=== PATIENT | female | born 1985 | race Caucasian/White ===

== ENCOUNTER → 2016-11-04 | Outpatient (CLI) | payer OTHER ==
[~2016-11-04] MED LIST: ALBUAER2 INH; B-COCAP2 PO; CALC-214 PO; FOLI1TAB7 PO; OMEGCAP2 PO; PRENTAB26 PO; RANITAB33 PO
== END | disposition home or self-care (01) ==
LOC: C.LABSPEC 17:06
PROVIDERS: ATTEND Family Medicine
DX: R73.01 Impaired fasting glucose (principal)

== ENCOUNTER → 2017-02-20 | Outpatient (CLI) | payer OTHER | END | disposition home or self-care (01) | LOC: C.PATHSPEC 13:29 | PROVIDERS: ATTEND Plastic Surgery | DX: L72.9 Follicular cyst of the skin and subcutaneous tissue, unspecified (principal) ==

== ENCOUNTER → 2017-04-01 | Outpatient (CLI) | payer OTHER | END | disposition home or self-care (01) | LOC: C.PAPS 07:53 | PROVIDERS: ATTEND Physician Assistant | DX: Z12.4 Encounter for screening for malignant neoplasm of cervix (principal) ==

== ENCOUNTER → 2017-10-20 | Outpatient (CLI) | payer OTHER ==
[~2017-10-20] MED LIST changes: -FOLI1TAB7 PO; +FOLI1TAB8 PO
== END | disposition home or self-care (01) ==
LOC: C.LAB 08:18
PROVIDERS: ATTEND Nutritionist
DX: R53.83 Other fatigue (principal)

== ENCOUNTER 2021-10-25 08:57 | Inpatient (IN) ==
[2021-10-25] MEDS ORDERED: OXYTOCIN 30 UNITS/500 ML BAG IV PRN ×2 (09:13→11:08)
[2021-10-25] MEDS ORDERED: PENICILLIN G POTASSIUM 6 MU in DEXTROSE 5% 250 ML IV STA (09:13)
[2021-10-25] MEDS ORDERED: LACTATED RINGER'S 1,000 ML IV PRN (09:13)
[2021-10-25 09:27] LABS: Hematocrit (blood only) 33.9 % (37-47); Hemoglobin 10.8 g/dL (12.0-16.0); Mean Corpuscular Hemoglobin 26.8 pg (25-34); Mean Corpuscular Hgb Conc 31.9 g/dL (32-36); Mean Corpuscular Volume 84.1 fL (80-100); Mean Platelet Volume 9.9 fL (7.4-10.4); Platelet Count 184 K/uL (130-400); RDW Standard Deviation 43.3 fL (36.4-46.3); Red Blood Count 4.03 M/uL (4.2-5.4); White Blood Count 7.71 K/uL (4.8-10.8)
--- NOTE | 2021-10-25 09:33 | History & Physical Report ---
Date of Service October 25, 2021 Assessment & Plan (1) PROM (premature rupture of membranes): Plan: Confirmed rupture of membranes nitrazine and AmniSure her cervix is posterior closed 50% her contractions are starting to increase penicillin be started discussed Pitocin if contractions do not increase substantially in the next 2 hours History of Present Illness Primary Care Provider: Jonatan Melo, DO Current Estimate 10/31/21 LMP (Certain) 38w 6d Other Estimates 10/31/21 Ultrasound #1 38w 6d LMP: 01/24/21 : 2 Full term: 1 Premature: 0 Total Number of Induced Abortions: 0 Total Number of Spontaneous Abortions: 0 Ectopics: 0 Multiple births: 0 Number of Living Children: 1 and Delivery Plans Hypothyroidism in *TFT's Q 4wks. GBS + urine *treat in labor *allergy tested, no allergy to PCN or Cephalosporins AMA NSTs at 36 wk Flu shot given 07/12/21 SB Need for Rhogam due to RH negative Mother *Rhogam given 03/08/21- in ED given 08/09/21 OC Allergies Allergy/AdvReac Type Severity Reaction Status Date / Time cefaclor Allergy Severe Gastrointestinal Verified 10/23/21 10:27 Upset Sulfa (Sulfonamide Allergy Severe RASH Verified 10/23/21 10:27 Antibiotics) egg Allergy Mild GI SYMPTOMS Verified 10/23/21 10:27 latex Allergy Mild RASH Verified 10/23/21 10:27 nut - unspecified Allergy Mild GI SYMPTOMS Verified 10/23/21 10:27 soy Allergy Mild GI SYMPTOMS Verified 10/23/21 10:27 gluten Allergy Unknown Unknown Verified 10/23/21 10:27 red dye Allergy Unknown Unknown Verified 10/23/21 10:27 adhesive tape Allergy Unknown Verified 10/23/21 10:27 codeine Allergy unknown Verified 10/23/21 10:27 azithromycin AdvReac Severe Gastrointestinal Verified 10/23/21 10:27 Upset sulfamethoxazole AdvReac Severe Gastrointestinal Verified 10/23/21 10:27 [From Bactrim] Upset trimethoprim [From Bactrim] AdvReac Severe Gastrointestinal Verified 10/23/21 10:27 Upset Home Medications Medication Instructions Recorded Confirmed Type multivitamin with minerals 1 tab PO DAILY 03/09/21 10/23/21 History (Multiple Vitamin-Minerals) Ca carb-Ca gluc-Mg ox-Mg gluco PO 03/19/21 10/23/21 History [Calcium Magnesium] biotin PO 03/19/21 10/23/21 History vitamin B complex PO 03/19/21 10/23/21 History cholecalciferol (vitamin D3) PO 09/06/21 10/23/21 History Patient History Medical History (Updated 10/25/21 @ 09:32 by Gunnar Rivera MD, FACOG) Carrier of group B Streptococcus History of hyperparathyroidism Hyperthyroidism Varicella Surgical History History of parathyroid surgery Hx of tonsillectomy Family History (Updated 03/19/21 @ 13:13 by Risa Mckenna) Grandfather (Paternal) Colorectal cancer Dementia Grandmother (Maternal) Factor V Leiden Mother Breast cancer, Onset Age: 56 Dx Fall 2017 with DCIS Aunt Breast cancer, Onset Age: 60 Grandfather (Maternal) Heart disease Other Dyslipidemia Hypertension Social History (Updated 03/19/21 @ 13:14 by Risa Mckenna) Smoking Status: Never smoker Hx Alcohol Use: No Hx Substance Use: No Preferred Language: Korean Club Attendant Required: No Beliefs That Will Affect Care: None marital status: marital status details: [facility] [phone]) [phone] Current Living Situation: Spouse Current Living Situation Comment: lvies with spouse, and daughter, no pets. current occupational status: unemployed Feels Safe at Home: Yes Sunscreen Use: Yes Results & Data ([facility]) Vital Signs (Past 12 Hours) Vital Signs Pulse BP 10/25/21 09:22 68 128/77 Coding Level of Care Code None Diagnoses PROM (premature rupture of membranes) O42.90
[2021-10-25] MEDS ORDERED: PENICILLIN G POTASSIUM 3 MU in DEXTROSE 5% 100 ML IV PRN (12:13)
--- NOTE | 2021-10-25 15:29 | Labor Progress Brief Note ---
Date of Service October 25, 2021 Patient on Pitocin having repetitive decelerations with every contraction cervix to 50% closed -2 of note the patient has had decreased movement movement for the last month of her we discussed potential causes of recurrent decelerations with every contraction including cord compression or placental dysfunction At this stage we will stop the Pitocin and reassess after some rest we discussed the possibility of at this process if this persists Assessment & Plan Admission and Anticipated Discharge Date Admission Date: October 25, 2021 Results & Data ([facility]) Vital Signs (Past 12 Hours) Vital Signs Temp Pulse Resp BP 10/25/21 13:45 57 L 117/62 10/25/21 13:12 98.1 F 10/25/21 10:28 98.1 F 22 10/25/21 09:22 98.1 F 68 20 128/77 Coding Level of Care Code None
--- NOTE | 2021-10-25 15:56 | Labor Progress Brief Note ---
Date of Service October 25, 2021 Subjective Review of Systems heart rate now shows no variability after Pitocin has been off she had a prolonged D-cell as well the cervix is still closed 50% I discussed 2 options 1 was to restart Pitocin after 30 minutes I also discussed the option of section as this fetus is not tolerating very well even minimal contractions I discussed the risks and benefits of both and she wishes to proceed with I think this is the reason we will call section. The patient was counseled to the nature of the procedure including alternatives such as labor. Risks were discussed including bleeding infection injury to bowel bladder ureter vessels and even baby. Deep Vein thrombosis, pulmonary embolus discussed. Breakdown of incision reviewed. Deep vein thrombosis pulmonary embolus hernia and failure of the incision to heal were discussed Patient verbalized understanding of this and was given ample time to ask questions Assessment & Plan Admission and Anticipated Discharge Date Admission Date: October 25, 2021 Results & Data ([facility]) Vital Signs (Past 12 Hours) Vital Signs Temp Pulse Resp BP Pulse Ox 10/25/21 15:48 83 100 10/25/21 15:43 97 H 100 10/25/21 15:38 81 100 10/25/21 15:33 107 H 100 10/25/21 13:45 57 L 117/62 10/25/21 13:12 98.1 F 10/25/21 10:28 98.1 F 22 10/25/21 09:22 98.1 F 68 20 128/77 Coding Level of Care Code None
[2021-10-25] MEDS ORDERED: CITRIC ACID/SODIUM CITRATE 15 ML UDC PO SCH (16:00)
[2021-10-25] MEDS ORDERED: ceFAZolin 2000MG 2,000 MG/15 ML SYR IV SCH (16:00)
--- NOTE | 2021-10-25 16:13 | Anesthesiology Consultation ---
Date of Service October 25, 2021 Assessment & Plan (1) Encounter for pre-operative examination: Chart Review Chart Review: Acceptable Risk for Surgery and Patient NOT seen in Pre Admission Testing Consults Requested none ASA ASA2 Proposed Anesthesia Anesthesia Type: MAC Spinal Risk / Benefits Reviewed With: PT / POA / Parent / Guardian, Accepts Plan and Informed Consent Obtained History Surgery Operation Date: 10/25/21 16:00 Proposed Procedures p Section in LD - J. Marcio Rivera MD, FACOG Height/Weight Height: 5 ft 8 in Weight: 77.657 kg Allergies Allergy/AdvReac Type Severity Reaction Status Date / Time cefaclor Allergy Severe Gastrointestinal Verified 10/23/21 10:27 Upset Sulfa (Sulfonamide Allergy Severe RASH Verified 10/23/21 10:27 Antibiotics) egg Allergy Mild GI SYMPTOMS Verified 10/23/21 10:27 latex Allergy Mild RASH Verified 10/23/21 10:27 nut - unspecified Allergy Mild GI SYMPTOMS Verified 10/23/21 10:27 soy Allergy Mild GI SYMPTOMS Verified 10/23/21 10:27 gluten Allergy Unknown Unknown Verified 10/23/21 10:27 red dye Allergy Unknown Unknown Verified 10/23/21 10:27 adhesive tape Allergy Unknown Verified 10/23/21 10:27 codeine Allergy unknown Verified 10/23/21 10:27 azithromycin AdvReac Severe Gastrointestinal Verified 10/23/21 10:27 Upset sulfamethoxazole AdvReac Severe Gastrointestinal Verified 10/23/21 10:27 [From Bactrim] Upset trimethoprim [From Bactrim] AdvReac Severe Gastrointestinal Verified 10/23/21 10:27 Upset Medications Home Medications Medication Instructions Recorded Confirmed Last Taken multivitamin with minerals 1 tab PO DAILY 03/09/21 10/23/21 Unknown (Multiple Vitamin-Minerals) Ca carb-Ca gluc-Mg ox-Mg gluco PO 03/19/21 10/23/21 Unknown [Calcium Magnesium] biotin PO 03/19/21 10/23/21 Unknown vitamin B complex PO 03/19/21 10/23/21 Unknown cholecalciferol (vitamin D3) PO 09/06/21 10/23/21 Unknown biotin 1 mg capsule 1 mg PO DAILY 10/25/21 10/25/21 10/25/21 07:00 calcium carb-Ca gluc 500 mg tab PO 10/25/21 10/25/21 07:00 calcium-magnesium ox-Mg gluc 250 mg tablet (Calcium Magnesium) Active Medications Generic Name Dose Route Start Last Admin Trade Name Freq PRN Reason Stop Dose Admin Lactated Ringer's 1,000 mls @ 125 mls/hr 10/25/21 09:13 10/25/21 15:51 Lr IV 10/27/21 09:12 125 mls/hr .Q8H PRN Infusion L&D Protocol Protocol Penicillin G Potassium 3 mu/ 106 mls @ 100 mls/hr 10/25/21 12:13 10/25/21 14:49 Dextrose IV 11/04/21 12:12 100 mls/hr Q4H PRN Administration GBS(+) Until Delivery Oxytocin 30 units in 500 mls @ 0 mls/hr 10/25/21 11:08 10/25/21 15:24 Pitocin IV 10/27/21 11:07 0 units/hr .Q0M PRN 0 mls/hr Labor Induction/Augmentation Titration Protocol 0 UNITS/HR NPO Date Last Intake of Fluids: 10/25/21 Time Last Intake of Fluids: 15:00 Date Last Intake of Solids: 10/25/21 Time Last Intake of Solids: 07:30 Past Medical History Medical History Carrier of group B Streptococcus History of hyperparathyroidism Hyperthyroidism Varicella Exercise / Class Metabolic Activity II 4-5 Yardwork/Stairs/Walk up hill Past Family History Family History Grandfather (Paternal) Colorectal cancer Dementia Grandmother (Maternal) Factor V Leiden Mother Breast cancer, Onset Age: 56 Dx Fall 2017 with DCIS Aunt Breast cancer, Onset Age: 60 Grandfather (Maternal) Heart disease Other Dyslipidemia Hypertension Past Surgical History Surgical History History of parathyroid surgery Hx of tonsillectomy Past Anesthesia History No Hx of Anesthesia Complications and No Family Hx of Anesthesia Complications History of PONV No Hx of PONV and No Hx of Motion Sickness Social History Smoking Status: Never smoker Hx Alcohol Use: No Hx Substance Use: No substance use type: does not use Review of Systems no chest pain or sob Physical Exam Vital Signs Last Vital Signs Temp 36.7 C 10/25/21 13:12 Pulse 86 10/25/21 16:08 Resp 22 10/25/21 10:28 BP 117/62 10/25/21 13:45 Pulse Ox 100 10/25/21 16:08 ENMT Mouth: no TMJ abnormality Thyromental Distance: > or= 3.5 Finger Breadths Mallampati Class: II Neck normal visual inspection Respiratory normal respiratory effort Auscultation: lungs clear to auscultation bilaterally Cardiovascular Rate/Rhythm: regular rate and regular rhythm Musculoskeletal Spine: normal cervical ROM Neurologic moves all extremities Psychiatric Orientation: alert and oriented x 3 Testing Laboratory Results 10/25/21 09:18
[2021-10-25] MEDS ORDERED: MoRPHine SULFATE PF 1 MG/ML 10 ML AMP/VIAL ONE (16:28)
[2021-10-25] MEDS ORDERED: fentaNYL citrate 100 MCG/2 ML VIAL ONE (16:28)
[2021-10-25] MEDS ORDERED: OXYTOCIN 10 UNITS/ML 10ML VIAL ONE ×3 (16:38→17:00)
[2021-10-25] MEDS ORDERED: PHENYLEPHRINE 100MCG/ML 5ML SYR ONE (16:49)
[2021-10-25] MEDS ORDERED: ONDANSETRON INJ 2 MG/ML 2 ML VIAL ONE (17:00)
--- NOTE | 2021-10-25 17:29 | Operative Report ---
PG Post Operative Report Pre & Post Diagnosis Operation Date: 10/25/21 16:00 <No data on this case meets the specified criteria> I identified the patient and participated in the time-out.: Yes Procedure Operation Date: 10/25/21 16:00 <No data on this case meets the specified criteria> Surgeon Gunnar Rivera MD, FACOG Hospitality Ambassador resident Estimated Blood Loss 800 Findings Consistent with Post-Op Diagnosis Specimens Cord gases Cord blood placenta Description of Procedure Regional anesthetic had been given by anesthesia patient was prepped and draped with a leftward tilt preoperative antibiotics had been given in appropriate timing by anesthesiology. Once the prep was allowed to fully dry timeout was performed. Pickups with teeth were used to test the incision area was found to be adequate for incision as the patient did not feel sharp pain. Scalpel was used to make a Pfannenstiel incision on the lower abdomen. We then cut through the subcutaneous fat down to the level of the anterior rectus sheath fascia this was cut in the midline and then extended laterally with the curved Hamlin scissors. At this stage we then placed 2 Bernice clamps on the anterior aspect of the fascia. Using the curved Hamlin's we are able to dissect the fascia superiorly away from the rectus muscles. Care was taken to maintain hemostasis. Bernice clamps were then placed to the inferior aspect of the anterior sheath of the fascia. Fascia was then dissected away from the rectus muscles inferiorly towards the pubic bone. A Bernice was then placed in the midline both inferiorly and superiorly. This was to allow exposure by retraction rectus muscles were in the midline with were then able to cut through the peritoneum and then enter the peritoneal cavity. Opening was enlarged to allow exposure of the peritoneal cavity both superiorly and inferiorly. Once adequate space was obtained a bladder retractor was placed to expose the lower segment Metzenbaums were used to dissect the bladder flap inferiorly away from the uterus. This was done sharply bladder retractor was then repositioned to expose the lower segment of the uterus Fresh scalpel was used to make a low transverse incision on the uterus. Uterus was then entered bluntly with the operators finger, membranes ruptured and the opening was enlarged using the operators fingers bluntly pulling superiorly and inferiorly to allow exposure. Baby was delivered by first flexion of the head elevation of the head out of the pelvis and then pressure by the assistant analyst on the maternal abdomen. Baby's head was then delivered mouth and then nares were suctioned and then using gentle traction the baby was fully delivered. Live vigorous infant. Fluid was clear cord clamped and cut cord gases obtained cord blood obtained baby handed to pediatrics. Placenta removed was removed with traction we ensure the entire placenta was removed with a moist lap sponge into the uterus. Should be noted that on entry of the uterus there was a large clot approximately 300 cc of blood in the uterus technical service representative in my opinion of an abruption. All clot was removed and we ensured all placenta was removed uterine tone improved and there was no excessive bleeding. I do not feel the uterus meet the criteria of [place] however it was somewhat dark issue consistent with the abruption. Uterus was then exteriorized. IV Pitocin had been started by anesthesia tone improved there were no extensions the uterus was then closed using 0 Monocryl in a 2 layer closure the first layer closed in a running locked fashion from left to right and then a second closure from left to right in a running nonlocked fashion. At this stage hemostasis was excellent. Uterus was placed back in the peritoneal cavity with suction irrigation out and inspection of the uterus at this stage revealed excellent hemostasis Retractors were removed urine color was clear at this stage of the case we inspected the rectus muscles they were hemostatic fascia was closed with 0 Vicryl subcutaneous fat was irrigated and closed with 3-0 Vicryl skin closed with 4-0 subcuticular Monocryl I attest to the content of the Intraoperative Record and any orders documented therein. Any exceptions are noted below. OB Procedure Charges [id number]
[2021-10-25] MEDS ORDERED: BENZOCAINE 20% AER SPR 82.5 GM CAN EXT PRN (17:48)
[2021-10-25] MEDS ORDERED: ONDANSETRON INJ 2 MG/ML 2 ML VIAL IV PRN ×2 (17:48→19:20)
[2021-10-25] MEDS ORDERED: PROMETHAZINE HCL 25 MG in SODIUM CHLORIDE 0.9% 50 ML IV PRN (17:48)
[2021-10-25] MEDS ORDERED: oxyCODONE/ACETAMINOPHEN 5mg/325mg TAB PO PRN (17:48)
[2021-10-25] MEDS ORDERED: diphenhydrAMINE Capsule 25 MG CAP PO PRN (17:48)
[2021-10-25] MEDS ORDERED: MAGNESIUM HYDROXIDE SUSP 30 ML UDC PO PRN (17:48)
[2021-10-25] MEDS ORDERED: LACTATED RINGER'S 1,000 ML IV SCH (17:48)
[2021-10-25] MEDS ORDERED: ACETAMINOPHEN 325 MG TAB PO PRN (17:48)
[2021-10-25] MEDS ORDERED: diphenhydrAMINE 50 MG/ML VIAL IV PRN ×2 (17:48→19:20)
[2021-10-25] MEDS ORDERED: HYDROCORTISONE ACETATE 25 MG SUPP PR PRN (17:48)
[2021-10-25] MEDS ORDERED: SENNA 8.6 MG TAB PO PRN (17:48)
[2021-10-25 18:02] LABS: Base Excess Cord Arterial Bld -1.9 mEq/L (-9-1.8); CO2 Cord Arterial Blood 58 mmHg (39.1-73.5); HCO3 Cord Arterial Blood 26 mmol/L (19.7-28.5); Oxygen Sat Cord Arterial Blood < 60.0 % (<60); PO2 Cord Arterial Blood 14 mmHg (4.1-31.7); pH Cord Arterial Blood 7.27 (7.1-7.38)
[2021-10-25 18:03] LABS: Base Excess Cord Venous Blood -2.1 mEq/L (-7.7-1.9); Cord Venous Blood HCO3 24 mmol/L (18.4-26.8); Cord Venous Blood PCO2 48 mmHg (30.4-57.2); Cord Venous Blood PO2 19 mmHg (14.1-43.3); Cord Venous Blood pH 7.32 (7.20-7.44); O2 Saturation Cord Venous Bld < 60.0 % (<68)
--- NOTE | 2021-10-25 18:52 | Anesthesiology Progress Note ---
Date of Service October 25, 2021 Anesthesia Post Procedure Vital Signs Vital Signs: Temp Pulse Resp BP Pulse Ox 10/25/21 18:50 61 98 10/25/21 18:46 70 135/75 10/25/21 18:45 72 98 10/25/21 18:40 65 97 10/25/21 18:36 62 114/61 10/25/21 18:35 63 97 10/25/21 18:30 67 97 10/25/21 18:25 66 97 10/25/21 18:20 68 98 10/25/21 18:15 72 106/63 98 10/25/21 18:10 62 100 10/25/21 18:05 60 110/61 100 10/25/21 18:00 62 100 10/25/21 17:56 75 112/60 10/25/21 17:55 69 100 10/25/21 17:50 72 100 10/25/21 17:45 36.7 C 68 16 110/58 L 100 10/25/21 17:40 74 100 10/25/21 17:36 74 106/53 L 10/25/21 17:35 71 100 10/25/21 16:23 79 100 10/25/21 16:18 66 100 10/25/21 16:13 78 100 10/25/21 16:08 86 100 10/25/21 16:03 81 100 10/25/21 15:58 79 100 10/25/21 15:53 81 100 10/25/21 15:48 83 100 10/25/21 15:43 97 H 100 10/25/21 15:38 81 100 10/25/21 15:33 107 H 100 10/25/21 13:45 57 L 117/62 10/25/21 13:12 36.7 C 10/25/21 10:28 36.7 C 22 10/25/21 09:22 36.7 C 68 20 128/77 Transfer of Care Handoff Completed per policy Notes Mental Status: alert / awake / arousable Patient Amnestic to Procedure: Yes Nausea / Vomiting: adequately controlled Pain: adequately controlled Airway Patency, RR, SpO2: stable & adequate BP & HR: stable & adequate Hydration State: stable & adequate Neuraxial Anesthesia: was administered and sensory block is resolving Anesthetic Complications: no major complications apparent and Pt Satisfied with anesthetic care
[2021-10-25] MEDS ORDERED: LACTATED RINGER'S 500 ML IV PRN (19:20)
[2021-10-25] MEDS ORDERED: NALOXONE HCL 0.4 MG/1 ML VIAL/CARP IV PRN (19:20)
[2021-10-25] MEDS ORDERED: ePHEDrine sulfate 50 MG/ML AMP IV PRN (19:20)
[2021-10-25] MEDS ORDERED: MoRPHine SULFATE PF 1 MG/ML 10 ML AMP/VIAL INT SPINAL ONE (19:20)
[2021-10-25] MEDS ORDERED: NALOXONE HCL 1 MG in SODIUM CHLORIDE 0.9% 1000ML 1,000 ML IV PRN (19:20)
[2021-10-25] MEDS ORDERED: HYDROmorphone INJ 0.5 MG/0.5 ML SYR IV PRN (19:20)
[2021-10-25] MEDS ORDERED: NALOXONE HCL 0.08 MG in SYRINGE 1.8 ML IV PRN (19:20)
[2021-10-25] MEDS ORDERED: NALBUPHINE HCL INJ 10 MG/ML AMP IV PRN (19:20)
[2021-10-25] MEDS ORDERED: SODIUM CHLORIDE 0.9% 1000ML 1,000 ML IV SCH (19:30)
[2021-10-25] MEDS ORDERED: DC INTRASPINAL MORPHINE SCH (19:30)
[2021-10-25] MEDS ORDERED: NO NARCOTICS OR SEDATIVES SCH (19:30)
[2021-10-25] MEDS: KETOROLAC 30 MG/ML VIAL IV PRN (19:43)
[2021-10-25] MEDS: OXYTOCIN 20 UNITS in LACTATED RINGER'S 1,000 ML IV SCH (19:45)
[2021-10-26] MEDS: SIMETHICONE 80 MG CHEW PO SCH ×5 (01:14→23:33)
[2021-10-26] MEDS: DOCUSATE SODIUM 100 MG CAP PO SCH ×3 (01:14→23:33)
[2021-10-26] MEDS: KETOROLAC 30 MG/ML VIAL IV PRN ×2 (01:58→08:32)
[2021-10-26] MEDS: OXYTOCIN 20 UNITS in LACTATED RINGER'S 1,000 ML IV SCH (03:25)
[2021-10-26 06:39] LABS: Hematocrit (blood only) 23.2 % (37-47); Hemoglobin 7.5 g/dL (12.0-16.0); Mean Corpuscular Hemoglobin 26.8 pg (25-34); Mean Corpuscular Hgb Conc 32.3 g/dL (32-36); Mean Corpuscular Volume 82.9 fL (80-100); Mean Platelet Volume 9.9 fL (7.4-10.4); Platelet Count 125 K/uL (130-400); RDW Coefficient of Variation 14.2 % (11.5-14.5); RDW Standard Deviation 43.1 fL (36.4-46.3); White Blood Count 8.05 K/uL (4.8-10.8)
[2021-10-26] MEDS ORDERED: LACTATED RINGER'S 500 ML IV ONE (06:45)
[2021-10-26 07:01] LABS: Basophils # (auto) 0.01 K/uL (0-0.2); Basophils % (auto) 0.1 %; Eosinophils # (auto) 0.02 K/uL (0-0.5); Eosinophils % (auto) 0.2 %; Immature Granulocytes # (auto) 0.04 K/uL (0.00-0.02); Immature Granulocytes % (auto) 0.5 %; Lymphocytes # (auto) 1.25 K/uL (1.2-3.4); Lymphocytes % (auto) 15.5 %; Monocytes # (auto) 0.81 K/uL (0.11-0.59); Monocytes % (auto) 10.1 %; Neutrophils # (auto) 5.92 K/uL (1.4-6.5); Neutrophils % (auto) 73.6 %; Polychromasia 1+
--- NOTE | 2021-10-26 07:43 | Obstetrical Progress Note ---
Date of Service <Loida Lu DO - Last Filed: 10/26/21 07:43> October 26, 2021 Assessment & Plan <Loida Lu DO - Last Filed: 10/26/21 07:43> (1) Encounter for care and examination after delivery: 36 yo post op day1 from c/s as elderly multigravida, complicated by placental abruption, hypothyroidism, doing well. -Continue routine post care. -vital signs reviewed and WNL (Tmax 36.8) -Blood Type O- received rhogam in office, GBS+, Rubella immune -Encourage ambulation, monitor and control pain with Motrin, tylenol PRN, resume regular diet, monitor lochia -encourage breast feeding -hemoglobin 7.5 Day #:: 1 <Gunnar Rivera MD, FACOG - Last Filed: 10/26/21 07:53> (1) Encounter for care and examination after delivery: Subjective <Loida Lu DO - Last Filed: 10/26/21 07:43> Ambulation: limited ambulation Voiding: liang catheter in place Passing Gas:: No Diet Tolerance:: regular diet Lochia:: Moderate Feeding Type:: breast feeding Current Pain Level(1-10): 2 Review of Systems Denies fever, chills, sweats Denies shortness of breath, difficulty breathing, chest pain, palpitations, chest pressure. Denies breast pain. Denies dysuria. Denies headache or changes in vision. Physical Exam <Loida Lu DO - Last Filed: 10/26/21 07:43> General: Alert, oriented. No acute distress. Cardiac: Regular rate and rhythm, no murmurs/rubs/gallops. Respiratory: Clear to auscultation bilaterally a/p, no wheezes/rales/rhonchi. No increased work of breathing. Symmetrical chest rise. No respiratory distress. Abdomen: Soft, nontender, nondistended. Bowel sounds present. Uterus: Uterine fundus firm, palpable 2 cm below umbilicus. Surgical scar clean and healing well. Lower Extremities: No lower extremity edema or swelling. No deep calf pain. Ramana's negative bilaterally. Results & Data ([facility]) <Loida Lu DO - Last Filed: 10/26/21 07:43> Vital Signs (Past 12 Hours) Vital Signs Temp Pulse Resp BP Pulse Ox 10/26/21 06:35 20 98 10/26/21 05:30 20 98 10/26/21 04:30 20 98 10/26/21 03:30 36.8 C 73 20 117/69 98 10/26/21 02:30 20 98 10/26/21 00:30 20 97 10/25/21 23:40 36.7 C 65 20 114/65 97 10/25/21 22:15 16 99 10/25/21 21:15 16 100 10/25/21 20:10 36.6 C 59 L 16 122/70 99 <Gunnar Rivera MD, FACOG - Last Filed: 10/26/21 07:53> Co-Signing Physician Notes Resident Physician Supervision Note: I interviewed and examined the patient. Discussed with [Name of resident] and agree with findings and plan as documented in the note. Any exceptions or clarifications are listed here: [None] Documented By: Gunnar Rivera MD, FACOG Resident Activity Tracking <Loida Lu DO - Last Filed: 10/26/21 07:43> Resident Involvement: Resident Care Provided Care Provided: Adult Hospital Medicine and OB Delivery
[2021-10-26] MEDS ORDERED: DIPHTHERIA/TETANUS/PERTUSSIS 0.5 ML SYR/VIAL IM ONE (08:00)
[2021-10-26] MEDS: FERROUS SULFATE 325 MG TAB PO SCH (08:31)
[2021-10-26] MEDS: PRENATAL VITAMIN 1 TAB PO SCH (09:14)
[2021-10-26] MEDS ORDERED: diphenhydrAMINE Capsule 25 MG CAP PO PRN (13:20)
[2021-10-26] MEDS ORDERED: oxyCODONE/ACETAMINOPHEN 5mg/325mg TAB PO PRN (13:20)
[2021-10-26] MEDS ORDERED: diphenhydrAMINE 50 MG/ML VIAL IV PRN (13:20)
[2021-10-26] MEDS ORDERED: ONDANSETRON INJ 2 MG/ML 2 ML VIAL IV PRN (13:20)
[2021-10-26] MEDS: IBUPROFEN 600 MG TAB PO PRN ×3 (14:23→23:33)
[2021-10-26] MEDS ORDERED: bisacodyL 5 MG TABEC PO SCH (20:00)
[2021-10-26 22:05] LABS: Basophils # (auto) 0.01 K/uL (0-0.2); Basophils % (auto) 0.1 %; Eosinophils # (auto) 0.01 K/uL (0-0.5); Eosinophils % (auto) 0.1 %; Hematocrit (blood only) 24.9 % (37-47); Hemoglobin 7.9 g/dL (12.0-16.0); Immature Granulocytes # (auto) 0.08 K/uL (0.00-0.02); Immature Granulocytes % (auto) 0.8 %; Lymphocytes # (auto) 1.01 K/uL (1.2-3.4); Lymphocytes % (auto) 10.1 %; Mean Corpuscular Hemoglobin 26.7 pg (25-34); Mean Corpuscular Volume 84.1 fL (80-100); Mean Platelet Volume 9.8 fL (7.4-10.4); Monocytes # (auto) 0.77 K/uL (0.11-0.59); Monocytes % (auto) 7.7 %; Neutrophils # (auto) 8.12 K/uL (1.4-6.5); Neutrophils % (auto) 81.2 %; Platelet Count 166 K/uL (130-400); RDW Coefficient of Variation 14.3 % (11.5-14.5); RDW Standard Deviation 43.9 fL (36.4-46.3); Red Blood Count 2.96 M/uL (4.2-5.4)
[2021-10-26 22:16] LABS: Mean Corpuscular Hgb Conc 31.7 g/dL (32-36)
[2021-10-26 22:22] LABS: Hypochromasia Present; Polychromasia 1+
[2021-10-27] MEDS: SIMETHICONE 80 MG CHEW PO SCH ×4 (00:10→14:12)
[2021-10-27] MEDS: IBUPROFEN 600 MG TAB PO PRN ×3 (04:40→12:56)
--- NOTE | 2021-10-27 06:33 | Obstetrical Progress Note ---
Date of Service <Loida Lu DO - Last Filed: 10/27/21 07:40> October 27, 2021 Assessment & Plan <Loida Lu DO - Last Filed: 10/27/21 07:40> (1) Encounter for care and examination after delivery: 36 yo post op day2 from c/s as elderly multigravida, complicated by placental abruption, hypothyroidism, doing well. -Continue routine post care. -vital signs reviewed and WNL (Tmax 36.9) -Blood Type O- received rhogam in office, GBS+, Rubella immune -Encourage ambulation, monitor and control pain with Motrin, tylenol PRN, resume regular diet, monitor lochia -encourage breast feeding -hemoglobin 7.9 Day #:: 2 <Swapna Dael MD, FACOG - Last Filed: 10/27/21 11:13> (1) Encounter for care and examination after delivery: Subjective <Loida Lu DO - Last Filed: 10/27/21 07:40> Ambulation: ambulating normally Voiding: no voiding problems Passing Gas:: Yes Diet Tolerance:: regular diet Lochia:: Small Feeding Type:: breast feeding Current Pain Level(1-10): 2 Review of Systems Denies fever, chills, sweats Denies shortness of breath, difficulty breathing, chest pain, palpitations, chest pressure. Denies breast pain. Denies dysuria. Denies headache or changes in vision. Physical Exam <Loida Lu DO - Last Filed: 10/27/21 07:40> General: Alert, oriented. No acute distress. Cardiac: Regular rate and rhythm, no murmurs/rubs/gallops. Respiratory: Clear to auscultation bilaterally a/p, no wheezes/rales/rhonchi. No increased work of breathing. Symmetrical chest rise. No respiratory distress. Abdomen: Soft, nontender, nondistended. Bowel sounds present. Uterus: Uterine fundus firm, palpable 2 cm below umbilicus. Surgical scar clean and healing well. Lower Extremities: No lower extremity edema or swelling. No deep calf pain. Ramana's negative bilaterally. Results & Data ([facility]) <Loida Lu DO - Last Filed: 10/27/21 07:40> Vital Signs (Past 12 Hours) Vital Signs Temp Pulse Pulse Resp BP BP Pulse Ox 10/26/21 23:30 36.9 C 85 16 112/74 97 10/26/21 20:52 36.8 C 90 18 111/71 97 <Swapna Dale MD, FACOG - Last Filed: 10/27/21 11:13> Co-Signing Physician Notes Resident Physician Supervision Note: I interviewed and examined the patient. Discussed with Dr. Lu and agree with findings and plan as documented in the note. Any exceptions or clarifications are listed here: [None] Documented By: Swapna Dale MD, FACOG Resident Activity Tracking <Loida Lu DO - Last Filed: 10/27/21 07:40> Resident Involvement: Resident Care Provided Care Provided: Adult Hospital Medicine and OB Delivery
[2021-10-27 06:35] LABS: Hematocrit (blood only) 22.5 % (37-47); Hemoglobin 7.1 g/dL (12.0-16.0)
[2021-10-27] MEDS: PRENATAL VITAMIN 1 TAB PO SCH ×2 (09:01→09:19)
[2021-10-27] MEDS: DOCUSATE SODIUM 100 MG CAP PO SCH ×2 (09:01→09:19)
[2021-10-27] MEDS: FERROUS SULFATE 325 MG TAB PO SCH (09:01)
[2021-10-27] MEDS ORDERED: bisacodyL 10 MG SUPP PR PRN (17:23)
--- NOTE | 2021-10-30 10:30 | Discharge Summary ---
Date of Service October 30, 2021 Admission HPI Per Admitting Provider Current Estimate 10/31/21 LMP (Certain) 38w 6d Other Estimates 10/31/21 Ultrasound #1 38w 6d LMP: 01/24/21 : 2 Full term: 1 Premature: 0 Total Number of Induced Abortions: 0 Total Number of Spontaneous Abortions: 0 Ectopics: 0 Multiple births: 0 Number of Living Children: 1 and Delivery Plans Hypothyroidism in *TFT's Q 4wks. GBS + urine *treat in labor *allergy tested, no allergy to PCN or Cephalosporins AMA NSTs at 36 wk Flu shot given 07/12/21 SB Need for Rhogam due to RH negative Mother *Rhogam given 03/08/21- in ED given 08/09/21 OC Discharge Data Consultations 10/25/21 09:13 Consult Anesthesiology Stat Procedures Performed Operation Date: 10/25/21 16:00 Actual Procedures p Section in LD - Gunnar Rivera MD, [facility] [place] (1) Encounter for care and examination after delivery: 36 yo post op day2 from c/s as elderly multigravida, complicated by placental abruption, hypothyroidism, doing well. -Continue routine post care. -vital signs reviewed and WNL (Tmax 36.9) -Blood Type O- received rhogam in office, GBS+, Rubella immune -Encourage ambulation, monitor and control pain with Motrin, tylenol PRN, resume regular diet, monitor lochia -encourage breast feeding -hemoglobin 7.9 Coding Level of Care Code None Diagnoses Encounter for care and examination after delivery Z39.2
== END 2021-10-27 14:30 | disposition home or self-care (01) | DRG 786 ==
LOC: OPB 08:57 → 4S1 08:58 → 4E1 20:14